=== PATIENT | female | born 1990 | race Caucasian/White ===

== ENCOUNTER 2016-09-10 04:05 | Emergency (ER) ==
[2016-09-10] MEDS ORDERED: LR 1,000 ML IV ONE (04:21)
[2016-09-10] MEDS ORDERED: SODIUM CHLORIDE 0.9% INJ ONE (04:22)
[2016-09-10] MEDS ORDERED: PHENERGAN IV ONE (04:22)
[2016-09-10] MEDS ORDERED: MORPHINE IV ONE (04:31)
--- NOTE | 2016-09-10 04:33 | PROVIDER DOCUMENTATION ---
HPI-Abdominal Pain/GI Problem - General Chief Complaint: Abdominal Pain Stated Complaint: RIGHT SIDE PAIN Time Seen by Provider: 09/10/16 04:21 Allergies/Adverse Reactions: Patient Allergies Allergy/AdvReac Type Severity Reaction Status Date / Time No Known Allergies Allergy Verified 05/07/14 12:29 - History of Present Illness-ABD Abdominal Pain Onset Location: reports: RLQ Pain Radiation: reports: no radiation Quality of Pain: reports: sharp, stabbing Severity in ED: reports: severe Onset/Duration: reports: just prior to arrival Timing: reports: still present Activities at Onset: reports: sleep Exposure to sick contacts?: No Modifying Factors: improves with: movement Associated Symptoms: reports: nausea, vomiting Last BM: last night Dark Stools Present?: reports: none noticed Rectal Bleeding: reports: none Rectal Pain: reports: none Emesis Description: reports: other (food) Bruising or Bleeding Gums?: No Similar Symptoms Previously?: No Recently seen or treated by another doctor?: No Review of Systems - Adult - REVIEW OF SYSTEMS - ADULT Constitutional: reports: no symptoms reported Eyes: reports: no symptoms reported Ears, Nose, Mouth & Throat: reports: no symptoms reported Cardiovascular: reports: no symptoms reported Respiratory: reports: no symptoms reported Gastrointestinal: reports: abdominal pain (rlq), nausea, vomiting Genitourinary: reports: no symptoms reported Musculoskeletal: reports: no symptoms reported Integumentary: reports: no symptoms reported Neurological: reports: no symptoms reported Psychiatric: reports: no symptoms reported Endocrine: reports: no symptoms reported Hematologic/Lymphatic: reports: no symptoms reported Allergic/Immunologic: reports: no symptoms reported All Other Systems: Reviewed and Negative Past History - Adult - PAST MEDICAL HISTORY-ADULT Review of Records: reports: Old Records Reviewed, Nursing Assessment Review, Medications Reviewed, Social history reviewed & non-contributory. Major Childhood Illnesses: reports: other ("heart surgery") Cardiovascular: reports: congenital heart disease Respiratory: reports: denies history Gastrointestinal: reports: denies history Obstetrical/Gynecological: reports: denies history Genitourinary: reports: denies history Musculoskeletal: reports: denies history Neurological: reports: denies history Psychiatric: reports: denies history Endocrine/Immune: reports: denies history Other Conditions: reports: denies history - PRIOR SURGERIES/PROCEDURES Surgical/Procedure History: reports: reviewed, not pertinent, other ("heart surgery" tricuspid valve) - PRIOR HOSPITALIZATIONS Prior Hospitalizations: reports: for other non-related - IMMUNIZATION STATUS Childhood Immunizations: See Nurse Assessment Flu Vaccine: See Nurse Assessment - FAMILY HISTORY Family History: other (not contributory) - SOCIAL HISTORY Smoking: cigarettes Provider spent 3-5 mins advising pt. on dangers of tobacco.: Discussed manners to quit use, and f/u contacts for add'l counseling. Substance Use: none/never Alcohol Use Frequency: occasionally Living Situation: family Physical Exam-General - PHYSICAL EXAM-ADULT Initial Vital Signs Reviewed: Yes - CONSTITUTIONAL General Appearance: alert, severe distress, thin - EYES Eyes: PERRL/EOMI, pink conjunctivae - HEAD, EARS, NOSE, MOUTH & THROAT HENMT: normocephalic/atraumatic, moist mucous membranes, normal ENT inspection - NECK Neck: non-tender, full range of motion, normal inspection - RESPIRATORY Respiratory: chest non-tender, lungs clear, normal breath sounds - CARDIOVASCULAR Cardiovascular: normal peripheral pulses, regular rate, rhythm, no edema - CHEST (BREASTS) Chest/Breast: deferred - GASTROINTESTINAL (ABDOMEN) Abdominal Exam: normal bowel sounds, soft, tenderness (RLQ), McBurney's point tenderness. negative: no organomegaly, no pulsatile mass, abdominal bruit, guarding, rigid, rebound, hernia, mass, hepatomegaly, spleenomegaly, obturator sign, prominent aortic pulsations, psoas - GENITOURINARY Female Genitalia/Pelvic Exam: deferred Hemoccult Exam: deferred - LYMPHATIC Lymphatic: no adenopathy - MUSCULOSKELETAL Back Exam: normal inspection, no vertebral tenderness, CVA tenderness (slight right-sided) Extremity: normal range of motion, non-tender, normal gait Peripheral Pulses: dorsalis-pedis (R): 3+, dorsalis-pedis (L): 3+ - SKIN Integumentary: normal color, normal turgor, warm/dry - NEUROLOGIC Neurologic: grossly normal, no motor/sensory deficits - PSYCHIATRIC Psych/Mental Status: normal mood/affect, normal thought content, normal thought process, oriented x 3 Departure - Departure Time of Disposition Order: 05:46 DIAGNOSIS: Cystitis, acute hemorrhagic Disposition: HOME 01 Certified Medical Emergency: Emergent Condition: Fair Additional Instructions: return if worse instead of better Prescriptions: Ciprofloxacin HCl [Cipro] 500 mg PO BID #14 tablet Phenazopyridine HCl [Pyridium] 200 mg PO Q6-8H PRN PRN #12 tablet PRN Reason: Pain Acetaminophen with Codeine [Tylenol with Codeine #3 Tablet] 1 each PO Q4-6H PRN PRN #12 tablet PRN Reason: Pain Referrals: Gilbert Ortega MD [STAFF PHYSICIAN] - Wang Hammer MD [STAFF PHYSICIAN] -
[2016-09-10 05:04] LABS: MANUAL DIFF NEEDED? NO
[2016-09-10 05:08] LABS: URINE SOURCE CLEAN CATCH
[2016-09-10 05:09] LABS: BASO% 0.1 % (0.0-0.8); EOS# 0.11 X1000 (0.0-0.7); EOS% 1.3 % (0.0-10.0); HEMATOCRIT 45.2 % (37.0-47.0); HEMOGLOBIN 15.3 g/dL (12.0-16.0); IMM GRAN# 0.01 X1000 (0.0-0.04); IMM GRAN% 0.1 % (0.0-0.5); LYMPH# 3.43 X1000 (1.2-3.4); LYMPH% 40.9 % (20.5-51.1); MCH 31.4 PG (27-31); MCHC 33.8 g/dL (33-37); MCV 92.8 FL (81-99); MONO# 1.06 X1000 (0.11-0.59); MONO% 12.6 % (1.7-9.3); MPV 9.1 FL (7.4-10.4); PLT 262 X1000 (130-400); RBC 4.87 XMIL (4.2-5.4)
[2016-09-10 05:38] LABS: BILIRUBIN URINE NEGATIVE (NEGATIVE); BLOOD URINE 4+ (NEGATIVE); CLARITY VERY CLOUDY (CLEAR); COLOR AMBER; GLUCOSE URINE NEGATIVE (NEGATIVE); LEUKOCYTES URINE 2+ (NEGATIVE); NITRITE URINE POSITIVE (NEGATIVE); PH URINE 6.5; PROTEIN URINE 2+(100 mg/dL) mg/dL (NEGATIVE); SP GRAVITY URINE 1.025; UROBILINOGEN URINE 1+(1 mg/dL)
[2016-09-10 05:39] LABS: URINE CULTURE PL NEEDED? YES; URINE EPITHELIAL CELLS >10 /HPF (<10); URINE RBC TNTC /HPF (<10); URINE WBC 20-40 /HPF (<10)
[2016-09-10] MEDS ORDERED: LEVAQUIN 750 MG/D5W 150 ML IV ONE (05:43)
[2016-09-10 07:45] VITALS: BP 120/79
== END 2016-09-10 07:45 | disposition home or self-care (01) ==
LOC: P.ED 04:05
DX: N30.00 Acute cystitis without hematuria (principal); R10.31 Right lower quadrant pain; R11.2 Nausea with vomiting, unspecified; F17.210 Nicotine dependence, cigarettes, uncomplicated; Z71.6 Tobacco abuse counseling
CPT/HCPCS: 81001; 81025; 85025; 87088; J2270; J2550; J7120